=== PATIENT | male | born 1945 | race Caucasian/White ===

== ENCOUNTER 2023-10-08 16:52 | Inpatient (IN) ==
[2023-10-08 18:15] LABS: ABS Basophils 0.1 10^3/uL (0.0-0.1); ABS Eosinophils 0.1 10^3/uL (0.0-0.5); ABS Lymphocytes 1.1 10^3/uL (1.0-4.8); ABS Monocytes 1.5 10^3/uL (0.0-1.1); ABS Neutrophils 7.9 10^3/uL (1.5-7.6); Eosinophil % 0.8 %; Hematocrit 25.9 % (38-53); Hemoglobin 8.5 g/dL (13.2-16.3); Lymphocyte % 9.9 %; Mean Corpuscular Hemoglobin 27.8 pg (27-33); Mean Corpuscular Volume 84.1 fL (80-97); Mean Platelet Volume 7.1 fL (7.5-11.2); Platelet Count 438 10^3/uL (150-450); Red Blood Count 3.08 10^6/uL (4.06-5.63); Red Cell Distribution Width 16.1 % (12-17); White Blood Count 10.7 10^3/uL (3.6-10.2)
[2023-10-08 19:09] LABS: ALT 18 U/L (7-52); AST 16 U/L (13-39); Albumin 3.4 g/dL (3.2-5.2); Alkaline Phosphatase 83 U/L (35-149); Anion Gap 6 mmol/L (2-16); Blood Urea Nitrogen 13 mg/dL (6-24); C Reactive Protein 85.55 mg/L (<8.01); CO2 Carbon Dioxide 29 mmol/L (22-32); Calcium 8.6 mg/dL (8.6-10.3); Chloride 96 mmol/L (101-111); Creatinine, Serum 0.98 mg/dL (0.67-1.17); Globulin 3.4 g/dL (2-4); Glucose 118 mg/dL (70-100); Potassium 3.9 mmol/L (3.5-5.0); Sodium 131 mmol/L (135-145); Total Bilirubin 0.4 mg/dL (0.2-1.0); Total Protein 6.8 g/dL (6.4-8.9); eGFR CKD-EPI 79.9 (>60)
[2023-10-08 20:16] LABS: Erythrocyte Sed Rate 110 mm/Hr (0-19)
[2023-10-08] MEDS: Cefepime 2 GM in Dextrose 2 GM/50 ML BAG IV ONE (22:49)
[2023-10-08] MEDS ORDERED: Vancomycin 1,250 MG in NS 0.9% 250 ml 250 ML IVPB SCH (23:00)
[2023-10-09] MEDS: DAPTOMYCIN IVPB SCH (00:16)
[2023-10-09] MEDS: NS 0.9% IVPB SCH (00:16)
[2023-10-09] MEDS ORDERED: Senna TAB 8.6 mg TAB PO PRN (01:41)
[2023-10-09] MEDS ORDERED: Polyethylene Glycol 3350 17 GM PACKET PO PRN (01:41)
[2023-10-09] MEDS: NS 0.9% 500 ml BAG 500 ML IV ONE (02:00)
[2023-10-09 03:35] LABS: % Iron Saturation 9 % (15-55); .Transferrin 167 mg/dL (203-362); Iron < 20 ug/dL (50-212); Total Iron Binding Capacity 234 mcg/dL (250-450); Unsaturated Iron Binding 214 ug/dL
[2023-10-09 03:55] LABS: Ferritin 191.6 ng/mL (24-336)
[2023-10-09 03:55] LABS: Urine Appearance No Cx Clear (Clear); Urine Bacteria No Culture Absent /HPF (Absent); Urine Bilirubin No Culture Negative (Negative); Urine Blood No Culture Negative (Negative); Urine Color No Culture Light-Yellow; Urine Glucose No Culture Negative (Negative); Urine Ketones No Culture Negative (Negative); Urine Leukocytes No Culture Negative Leu/uL (Negative); Urine Nitrite No Culture Negative (Negative); Urine Protein No Culture Negative (Negative); Urine Red Blood Cell No Cult Trace(0-2/hpf) /HPF (0-Trace); Urine Specific Gravity No Cx 1.009 (1.002-1.030); Urine Urobilinogen No Cx Negative (Negative); Urine White Blood Cell No Cult Trace(0-5/hpf) /HPF (0-Trace); Urine pH No Culture 5.5 (5.0-8.0)
[2023-10-09] MEDS: Enoxaparin 40 MG/0.4 ML SYR SUBCUT SCH (05:34)
[2023-10-09 05:48] LABS: Hematocrit 25.3 % (38-53); Hemoglobin 8.5 g/dL (13.2-16.3); Mean Corpuscular Hemoglobin 28.1 pg (27-33); Mean Corpuscular Hgb Conc 33.7 g/dL (31-36); Mean Corpuscular Volume 83.6 fL (80-97); Mean Platelet Volume 6.7 fL (7.5-11.2); Platelet Count 448 10^3/uL (150-450); Red Blood Count 3.03 10^6/uL (4.06-5.63); White Blood Count 9.9 10^3/uL (3.6-10.2)
[2023-10-09] MEDS ORDERED: NS 0.9% IVPB SCH (07:00)
[2023-10-09] MEDS ORDERED: DAPTOMYCIN IVPB SCH (07:00)
[2023-10-09 07:02] LABS: Albumin 3.3 g/dL (3.2-5.2); Albumin/Globulin Ratio 0.9 (1-3); Calcium 8.5 mg/dL (8.6-10.3); Creatinine, Serum 0.83 mg/dL (0.67-1.17); Globulin 3.5 g/dL (2-4); Magnesium 1.6 mg/dL (1.9-2.7); Potassium 4.1 mmol/L (3.5-5.0); Total Bilirubin 0.4 mg/dL (0.2-1.0); Total Protein 6.8 g/dL (6.4-8.9); eGFR CKD-EPI 90.7 (>60)
[2023-10-09] MEDS: CMCS: FLUTICAS/UMECLI/VILANT 200-62.5-25 MDI (NF) INH SCH (08:39)
[2023-10-09] MEDS: Aspirin EC 81 mg TAB.EC (enteric coated) PO SCH (08:40)
[2023-10-09] MEDS: CMCS: Roflumilast 500 mcg TAB (NF) PO SCH (08:40)
[2023-10-09] MEDS: Cefepime 2 GM in Dextrose 2 GM/50 ML BAG IV SCH (08:41)
[2023-10-10] MEDS: DAPTOMYCIN IVPB SCH (00:30)
[2023-10-10] MEDS: NS 0.9% IVPB SCH (00:30)
[2023-10-10 06:23] LABS: ABS Basophils 0.1 10^3/uL (0.0-0.1); ABS Eosinophils 0.6 10^3/uL (0.0-0.5); ABS Lymphocytes 0.7 10^3/uL (1.0-4.8); ABS Monocytes 1.3 10^3/uL (0.0-1.1); ABS Neutrophils 5.7 10^3/uL (1.5-7.6); ABS Nucleated RBC 0.01 10^3/ul; Eosinophil % 7.1 %; Hemoglobin 8.3 g/dL (13.2-16.3); Lymphocyte % 8.7 %; Mean Corpuscular Hemoglobin 28.2 pg (27-33); Mean Corpuscular Hgb Conc 33.4 g/dL (31-36); Mean Corpuscular Volume 84.5 fL (80-97); Mean Platelet Volume 7.3 fL (7.5-11.2); Nucleated Red Blood Cells % 0.1 %/100WBC (0.0-0.8); Platelet Count 426 10^3/uL (150-450); Red Blood Count 2.95 10^6/uL (4.06-5.63); White Blood Count 8.4 10^3/uL (3.6-10.2)
[2023-10-10 06:41] LABS: Creatinine, Serum 0.93 mg/dL (0.67-1.17); Magnesium 1.8 mg/dL (1.9-2.7); Potassium 4.6 mmol/L (3.5-5.0); eGFR CKD-EPI 85.1 (>60)
[2023-10-10] MEDS: Magnesium Sulfate 2 gm BAG 2 GM/50 ML BAG IVPB ONE (08:10)
[2023-10-10] MEDS: Levalbuterol HFA INHALER MDI INH PRN (23:35)
[2023-10-11 05:40] LABS: Hematocrit 24.2 % (38-53); Hemoglobin 8.1 g/dL (13.2-16.3); Mean Corpuscular Hemoglobin 28.1 pg (27-33); Mean Corpuscular Hgb Conc 33.5 g/dL (31-36); Mean Corpuscular Volume 83.8 fL (80-97); Mean Platelet Volume 6.9 fL (7.5-11.2); Platelet Count 422 10^3/uL (150-450); Red Blood Count 2.88 10^6/uL (4.06-5.63); Red Cell Distribution Width 16.1 % (12-17); White Blood Count 9.1 10^3/uL (3.6-10.2)
[2023-10-11 06:21] LABS: Calcium 8.7 mg/dL (8.6-10.3); Creatinine, Serum 1.03 mg/dL (0.67-1.17); Potassium 4.3 mmol/L (3.5-5.0); eGFR CKD-EPI 75.3 (>60)
[2023-10-11 12:20] LABS: C Reactive Protein 92.6 mg/L (<8.01)
[2023-10-11] MEDS: Linezolid 600 MG IVPREMIX(*) 600 MG/300 ML BAG IVPB SCH (16:57)
[2023-10-12 07:07] LABS: ABS Basophils 0.1 10^3/uL (0.0-0.1); ABS Eosinophils 0.6 10^3/uL (0.0-0.5); ABS Lymphocytes 1.5 10^3/uL (1.0-4.8); ABS Monocytes 1.1 10^3/uL (0.0-1.1); ABS Neutrophils 4.2 10^3/uL (1.5-7.6); Eosinophil % 8.2 %; Hematocrit 24.2 % (38-53); Hemoglobin 8.1 g/dL (13.2-16.3); Mean Corpuscular Hemoglobin 27.9 pg (27-33); Mean Corpuscular Hgb Conc 33.5 g/dL (31-36); Mean Corpuscular Volume 83.1 fL (80-97); Mean Platelet Volume 6.9 fL (7.5-11.2); Platelet Count 459 10^3/uL (150-450); Red Blood Count 2.91 10^6/uL (4.06-5.63); Red Cell Distribution Width 15.9 % (12-17); White Blood Count 7.4 10^3/uL (3.6-10.2)
[2023-10-12 07:14] LABS: Calcium 8.9 mg/dL (8.6-10.3); Creatinine, Serum 0.89 mg/dL (0.67-1.17); Magnesium 1.8 mg/dL (1.9-2.7); Potassium 4.1 mmol/L (3.5-5.0); eGFR CKD-EPI 88.8 (>60)
[2023-10-12] MEDS: Magnesium Sulfate 2 gm BAG 2 GM/50 ML BAG IVPB ONE (09:35)
[2023-10-13] MEDS: Ipratropium HFA INHALER(NF) (ALTERNATIVE = NEBS) INH PRN (00:22)
[2023-10-13 06:50] LABS: Hematocrit 23.6 % (38-53); Hemoglobin 8.1 g/dL (13.2-16.3); Mean Corpuscular Hemoglobin 28.7 pg (27-33); Mean Corpuscular Hgb Conc 34.5 g/dL (31-36); Mean Corpuscular Volume 83.3 fL (80-97); Mean Platelet Volume 7.2 fL (7.5-11.2); Platelet Count 460 10^3/uL (150-450); Red Blood Count 2.83 10^6/uL (4.06-5.63)
[2023-10-13 07:05] LABS: Calcium 8.7 mg/dL (8.6-10.3); Creatinine, Serum 0.95 mg/dL (0.67-1.17); Magnesium 1.8 mg/dL (1.9-2.7); Potassium 4.4 mmol/L (3.5-5.0)
[2023-10-13 08:15] LABS: ABS Basophils 0.1 10^3/uL (0.0-0.1); ABS Eosinophils 0.6 10^3/uL (0.0-0.5); ABS Lymphocytes 2.4 10^3/uL (1.0-4.8); ABS Neutrophils 4.9 10^3/uL (1.5-7.6); Lymphocyte % 27.1 %
[2023-10-13] MEDS: Magnesium Sulfate 2 gm BAG 2 GM/50 ML BAG IVPB ONE (08:19)
[2023-10-13 10:17] VITALS: BP 132/78
== END 2023-10-13 15:35 | disposition home health service (06) | DRG 872 ==
LOC: ED 16:52 → EDHOLD 16:52 → SUATTDRO 10-09 01:41 → SSU 10-09 12:19
PROVIDERS: ADMIT Internal Medicine; ATTEND Internal Medicine

== ENCOUNTER 2024-04-20 18:18 | Inpatient (IN) ==
[2024-04-20 18:59] LABS: Hematocrit 25.5 % (38-53); Hemoglobin 8.2 g/dL (13.2-16.3); Mean Corpuscular Hemoglobin 25.5 pg (27-33); Mean Corpuscular Hgb Conc 32.1 g/dL (31-36); Mean Corpuscular Volume 79.2 fL (80-97); Mean Platelet Volume 6.8 fL (7.5-11.2); Platelet Count 532 10^3/uL (150-450); Red Blood Count 3.22 10^6/uL (4.06-5.63); Red Cell Distribution Width 16.3 % (12-17); White Blood Count 14.3 10^3/uL (3.6-10.2)
[2024-04-20 19:16] LABS: INR 1.08 (0.85-1.14)
[2024-04-20 19:37] LABS: Albumin 3.4 g/dL (3.2-5.2); Albumin/Globulin Ratio 0.9 (1-3); Creatinine, Serum 1.3 mg/dL (0.67-1.17); Globulin 3.8 g/dL (2-4); Potassium 5.3 mmol/L (3.5-5.0); Total Bilirubin 0.2 mg/dL (0.2-1.0); Total Protein 7.2 g/dL (6.4-8.9); eGFR CKD-EPI 56.6 (>60)
[2024-04-20 19:44] LABS: ABS Basophils 0.1 10^3/uL (0.0-0.1); ABS Eosinophils 0.3 10^3/uL (0.0-0.5); ABS Lymphocytes 2.5 10^3/uL (1.0-4.8); ABS Monocytes 1.6 10^3/uL (0.0-1.1); ABS Neutrophils 9.9 10^3/uL (1.5-7.6); Eosinophil % 1.9 %; Lymphocyte % 17.4 %; Microcytosis 1+
[2024-04-20 19:48] LABS: Magnesium 1.8 mg/dL (1.9-2.7)
[2024-04-20 20:28] LABS: High Sensitivity Troponin 1 Hr 53 pg/mL (<20)
[2024-04-20] MEDS: Magnesium Sulfate IV 1GM/100ML 1 GM/100 ML BAG IV ONE (21:52)
[2024-04-21 00:46] LABS: C Reactive Protein 95.56 mg/L (<8.01)
[2024-04-21] MEDS ORDERED: Linezolid 600 MG IVPREMIX(*) 600 MG/300 ML BAG IVPB SCH (01:00)
[2024-04-21] MEDS ORDERED: CMCS: Ipratropium HFA INHALER(NF) INH PRN (01:40)
[2024-04-21 03:05] LABS: Osmolality Serum 288 mOsm/kg (275-295)
[2024-04-21 03:55] LABS: Urine Osmo 335 mOsm/kg (150-1150)
[2024-04-21 03:56] LABS: High Sensitivity Troponin 1 Hr 35 pg/mL (<20)
[2024-04-21] MEDS: Enoxaparin 40 MG/0.4 ML SYR SUBCUT SCH (05:22)
[2024-04-21] MEDS: Linezolid 600 MG IVPREMIX(*) 600 MG/300 ML BAG IVPB SCH ×2 (05:22→17:22)
[2024-04-21 05:32] LABS: Hematocrit 26.5 % (38-53); Hemoglobin 8.4 g/dL (13.2-16.3); Mean Corpuscular Hemoglobin 25.1 pg (27-33); Mean Corpuscular Hgb Conc 31.8 g/dL (31-36); Mean Corpuscular Volume 78.8 fL (80-97); Mean Platelet Volume 6.9 fL (7.5-11.2); Platelet Count 545 10^3/uL (150-450); Red Blood Count 3.36 10^6/uL (4.06-5.63); Red Cell Distribution Width 16.5 % (12-17); White Blood Count 11.2 10^3/uL (3.6-10.2)
[2024-04-21 05:56] LABS: High Sensitivity Troponin 3 Hr 34 pg/mL (<20)
[2024-04-21 06:42] LABS: Calcium 9.2 mg/dL (8.6-10.3); Creatinine, Serum 1.13 mg/dL (0.67-1.17); Magnesium 2.1 mg/dL (1.9-2.7); Potassium 4.9 mmol/L (3.5-5.0); eGFR CKD-EPI 66.9 (>60)
[2024-04-21] MEDS: CMCS: FLUTICAS/UMECLI/VILANT 200-62.5-25 MDI (NF) INH SCH (07:21)
[2024-04-21] MEDS: Levalbuterol HFA INHALER MDI INH PRN (07:24)
[2024-04-21 07:56] LABS: ABS Basophils 0.1 10^3/uL (0.0-0.1); ABS Eosinophils 0.2 10^3/uL (0.0-0.5); ABS Monocytes 1.3 10^3/uL (0.0-1.1); ABS Neutrophils 6.7 10^3/uL (1.5-7.6); ABS Nucleated RBC 0.01 10^3/ul; Eosinophil % 1.3 %; Lymphocyte % 26.3 %; Nucleated Red Blood Cells % 0.1 %/100WBC (0.0-0.8)
[2024-04-21 07:57] LABS: Microcytosis 1+; Toxic Granulation 1+
[2024-04-21] MEDS: Aspirin EC 81 mg TAB.EC (enteric coated) PO SCH (10:59)
[2024-04-21] MEDS: CMCS: Roflumilast 500 mcg TAB (NF) PO SCH (11:00)
[2024-04-21] MEDS ORDERED: fentaNYL 250 mcg/5 ml 50 MCG/ML 5 ml VIAL (250 MCG) ONE (12:07)
[2024-04-21] MEDS ORDERED: Midazolam 5 mg/5 ml VIAL 1 mg/ml 5 ml VIAL (5 mg) ONE (12:07)
[2024-04-21] MEDS ORDERED: Naloxone 0.4 mg VIAL 0.4 mg/ml 1 ml VIAL ONE (12:28)
[2024-04-21] MEDS ORDERED: Flumazenil 0.5 mg/5 ml 0.1 MG/ML 5 ml VIAL ONE (12:28)
[2024-04-21] MEDS: fentaNYL 100 mcg/2 ml 50 MCG/ML VIAL IV SLOW PU ONE (14:56)
[2024-04-21] MEDS: Midazolam 10 mg/10 ml VIAL 1 mg/ml 10 ml VIAL (10 mg) IV SLOW PU ONE (14:56)
[2024-04-22] MEDS: Albuterol/Ipratropium NEB.SOL (2.5/0.5 MG) 3 ML NEB.SOLN INH ONE (01:20)
[2024-04-22 06:25] LABS: Hematocrit 23.8 % (38-53); Hemoglobin 7.8 g/dL (13.2-16.3); Mean Corpuscular Hemoglobin 25.9 pg (27-33); Mean Corpuscular Hgb Conc 32.8 g/dL (31-36); Mean Platelet Volume 7.1 fL (7.5-11.2); Platelet Count 470 10^3/uL (150-450); Red Blood Count 3.01 10^6/uL (4.06-5.63); Red Cell Distribution Width 16.3 % (12-17); White Blood Count 10.4 10^3/uL (3.6-10.2)
[2024-04-22 06:43] LABS: Calcium 8.8 mg/dL (8.6-10.3); Creatinine, Serum 1.11 mg/dL (0.67-1.17); Magnesium 1.7 mg/dL (1.9-2.7); Potassium 4.5 mmol/L (3.5-5.0); eGFR CKD-EPI 68.4 (>60)
[2024-04-22 08:01] LABS: ABS Basophils 0.1 10^3/uL (0.0-0.1); ABS Eosinophils 0.2 10^3/uL (0.0-0.5); ABS Lymphocytes 2.4 10^3/uL (1.0-4.8); ABS Monocytes 1.1 10^3/uL (0.0-1.1); ABS Neutrophils 6.7 10^3/uL (1.5-7.6); ABS Nucleated RBC 0.01 10^3/ul; Eosinophil % 1.8 %; Microcytosis 1+; Nucleated Red Blood Cells % 0.1 %/100WBC (0.0-0.8); Toxic Granulation 1+
[2024-04-22] MEDS: Magnesium Sulfate 2 gm BAG 2 GM/50 ML BAG IVPB ONE (08:46)
[2024-04-22 15:52] LABS: Ferritin 167.9 ng/mL (24-336)
[2024-04-22 15:56] LABS: Folate 11.56 ng/mL (5.90-24.80)
[2024-04-23] MEDS: Albuterol/Ipratropium NEB.SOL (2.5/0.5 MG) 3 ML NEB.SOLN INH ONE (00:47)
[2024-04-23] MEDS: Calcium Carb (TUMS) 500 mg CHEW TAB PO PRN (00:50)
[2024-04-23 06:20] LABS: Hematocrit 26.6 % (38-53); Hemoglobin 8.6 g/dL (13.2-16.3); Mean Corpuscular Hemoglobin 25.4 pg (27-33); Mean Corpuscular Hgb Conc 32.2 g/dL (31-36); Mean Corpuscular Volume 78.9 fL (80-97); Mean Platelet Volume 6.8 fL (7.5-11.2); Platelet Count 494 10^3/uL (150-450); Red Blood Count 3.37 10^6/uL (4.06-5.63); Red Cell Distribution Width 16.4 % (12-17); White Blood Count 9.6 10^3/uL (3.6-10.2)
[2024-04-23 06:35] LABS: ABS Basophils 0.1 10^3/uL (0.0-0.1); ABS Eosinophils 0.2 10^3/uL (0.0-0.5); ABS Lymphocytes 2.4 10^3/uL (1.0-4.8); ABS Monocytes 1.3 10^3/uL (0.0-1.1); ABS Neutrophils 5.5 10^3/uL (1.5-7.6); Eosinophil % 1.8 %; Lymphocyte % 25.3 %
[2024-04-23 06:52] LABS: Calcium 9.4 mg/dL (8.6-10.3); Creatinine, Serum 1.11 mg/dL (0.67-1.17); Magnesium 1.9 mg/dL (1.9-2.7); Potassium 4.4 mmol/L (3.5-5.0); eGFR CKD-EPI 68.4 (>60)
[2024-04-24 08:37] LABS: Albumin 3.5 g/dL (3.2-5.2); Albumin/Globulin Ratio 0.8 (1-3); Calcium 9.2 mg/dL (8.6-10.3); Creatinine, Serum 1.16 mg/dL (0.67-1.17); Globulin 4.4 g/dL (2-4); Potassium 4.2 mmol/L (3.5-5.0); Total Bilirubin 0.5 mg/dL (0.2-1.0); Total Protein 7.9 g/dL (6.4-8.9); eGFR CKD-EPI 64.9 (>60)
[2024-04-24] MEDS: Albuterol/Ipratropium NEB.SOL (2.5/0.5 MG) 3 ML NEB.SOLN INH SCH (11:45)
[2024-04-24 17:37] LABS: Magnesium 1.7 mg/dL (1.9-2.7)
[2024-04-24 18:56] LABS: Osmolality Serum 280 mOsm/kg (275-295)
[2024-04-24 19:45] LABS: Urine Osmo 425 mOsm/kg (150-1150)
[2024-04-25] MEDS ORDERED: Albuterol/Ipratropium NEB.SOL (2.5/0.5 MG) 3 ML NEB.SOLN INH PRN (00:06)
[2024-04-25] MEDS: Magnesium Sulfate 2 gm BAG 2 GM/50 ML BAG ONE (01:10)
[2024-04-25] MEDS: Magnesium Sulfate 2 gm BAG 2 GM/50 ML BAG IVPB ONE (02:27)
[2024-04-25 06:08] LABS: ABS Basophils 0.1 10^3/uL (0.0-0.1); ABS Eosinophils 0.1 10^3/uL (0.0-0.5); ABS Lymphocytes 1.8 10^3/uL (1.0-4.8); ABS Monocytes 1.1 10^3/uL (0.0-1.1); ABS Neutrophils 5.6 10^3/uL (1.5-7.6); Hematocrit 23.6 % (38-53); Hemoglobin 8.1 g/dL (13.2-16.3); Lymphocyte % 20.6 %; Mean Corpuscular Hemoglobin 26.7 pg (27-33); Mean Corpuscular Hgb Conc 34.1 g/dL (31-36); Mean Corpuscular Volume 78.3 fL (80-97); Mean Platelet Volume 6.7 fL (7.5-11.2); Platelet Count 386 10^3/uL (150-450); Red Blood Count 3.02 10^6/uL (4.06-5.63); Red Cell Distribution Width 16.4 % (12-17); White Blood Count 8.6 10^3/uL (3.6-10.2)
[2024-04-25 06:26] LABS: Creatinine, Serum 0.93 mg/dL (0.67-1.17); Magnesium 2.1 mg/dL (1.9-2.7); eGFR CKD-EPI 84.6 (>60)
[2024-04-25] MEDS ORDERED: Albuterol/Ipratropium NEB.SOL (2.5/0.5 MG) 3 ML NEB.SOLN INH SCH (07:00)
[2024-04-25 11:28] VITALS: BP 116/63
== END 2024-04-25 15:00 | disposition home or self-care (01) | DRG 872 ==
LOC: ED 18:18 → EDHOLD 18:18 → SUATTDRO 04-21 00:06 → MEDTELE 04-21 11:00 → SUATTDRO 04-23 12:49 → MEDTELE 04-24 07:46
PROVIDERS: ADMIT Student in an Organized Health Care Education/Training Program; ATTEND Student in an Organized Health Care Education/Training Program